=== PATIENT | male | born 1965 | race Caucasian/White ===

== ENCOUNTER → 2022-03-11 14:55 | Outpatient (CLI) | payer SELFPAY ==
--- NOTE | 2022-03-11 15:03 | DI.RAD.S_ITS ---
PROCEDURE: XR CHEST 2V INDICATIONS: TB SCREENING TECHNIQUE: 2 views of the chest were acquired. COMPARISON: None. FINDINGS: Surgical changes and devices: None. Lungs and pleura: Lungs are clear. No pleural effusions or pneumothorax. Mediastinum: Mediastinal contours are normal. Heart size is normal. Bones and chest wall: No suspicious bony abnormalities. Soft tissues appear unremarkable. IMPRESSION: No acute cardiopulmonary abnormality or definite radiographic evidence of active tuberculosis. Dictated by: Aamir Lopez M.D. on 03/11/2022 at 18:02 Approved by: Aamir Lopez M.D. on 03/11/2022 at 18:04
== END ==
DX: Z11.1 Encounter for screening for respiratory tuberculosis (principal); R76.12 Nonspecific reaction to cell mediated immunity measurement of gamma interferon antigen response without active tuberculosis
CPT/HCPCS: 71046